=== PATIENT | female | born 1995 | race Caucasian/White ===

== ENCOUNTER 2023-08-21 17:33 | Outpatient (CLI) | payer BC, SELFPAY ==
--- OUTSIDE RECORDS SUMMARY | 2023-08-21 17:35 | XMS_ITS | Referral Summary ---
Author Organization [facility] Address [address] [place] [address] Care Team Providers Care Buffing Wheel Former Automatic Name Role Phone No Ref-Primary, Physician Primary Care Provider Allergies No known active allergies Medications Medication Sig Dispensed Refills Start Date End Date Status ORDER FOR DMEIndications:Pain in joint, ankle and foot, right,Right ankle sprain, initial encounter Equipment being ordered: ankle stirrup-universal 1 Device 0 02/04/2013 Active ORDER FOR DMEIndications:Spra in of ankle, right, subsequent encounter Equipment being ordered: standard ankle skin, large 1 Device 0 02/22/2013 Active oxyCODONE (ROXICODONE) 5 MG immediate release tabletIndications:F racture Take 1-2 tablets (5-10 mg) by mouth every 4 hours as needed for moderate to severe pain 24 tablet 0 10/26/2013 Active ibuprofen (ADVIL,MOTRIN) 400-800 mg tabletIndications:F racture Take 1 tablet (400 mg) by mouth every 6 hours as needed for moderate pain 24 tablet 0 10/26/2013 Active docusate sodium (COLACE) 50 MG capsuleIndications: No active medical problems Take 1 capsule (50 mg) by mouth 2 times daily 30 capsule 0 10/26/2013 Active Active Problems Problem Noted Date Diagnosed Date Fracture 10/25/2013 Right ankle sprain 02/04/2013 No active medical problems 05/06/2012 Resolved Problems Problem Noted Date Diagnosed Date Resolved Date Abnormal gait 11/10/2013 01/01/2014 Hip pain 10/31/2013 01/01/2014 Immunizations Name Administration Dates Next Due Rabies - IM Fibroblast Culture 09/29/2013 Rabies-Intradermal 09/24/2013,10/04/2012, 013,09/23/2012 TDAP (Adacel,Boostrix) 03/30/2021 Social History Tobacco Use Types Packs/Day Years Used Date Smoking Tobacco: Never Alcohol Use Standard Drinks/Week Comments No 0 (1 standard drink = 0.6 oz pur e alcohol) Adolescent Education Answer Date Record ed Getting School Help Needed Not on file 11/25 Sex and Gender Information Value Date Recorded Sex Assigned at Not on file Gender Identity Not on file Sexual Orientation Not on file Last Filed Vital Signs Vital Sign Reading Time Taken Comments Blood Pressure 104/71 03/30/2021 10:30 PM CONCRETE PIPE MAKER Pulse 78 03/30/2021 10:30 PM CONCRETE PIPE MAKER Temperature 36.6 ??C (97.8 ??F) 03/30/2021 10:[address] Respiratory Rate 16 03/30/2021 10:30 PM CONCRETE PIPE MAKER Oxygen Saturation 98% 03/30/2021 10:30 PM CONCRETE PIPE MAKER Inhaled Oxygen Concentration - - Weight 68 kg (150 lb) 10/25/2013 1:06 PM CDT Height 172.7 cm (5' 8) 10/25/2013 5:07 PM CDT Body Mass Index 22.81 10/25/2013 1:06 PM CDT Plan of Treatment Not on file Care Teams Buffing Wheel Former Automatic Relationship Specialty Start Date End Date No Ref-Primary, Physician PCP - General 03/30/21
--- OUTSIDE RECORDS SUMMARY | 2023-08-21 17:35 | XMS_ITS | Continuity of Care Document ---
Author Organization [facility] Address [address] [address] [place] [address] Phone Care Team Providers Care Jailkeeper Name Role Phone Rosa Isela Greco MD Unavailable Unavailable Allergies, Adverse Reactions, Alerts Substance Reaction Status Criticality No Known Allergies Active No Inform ation Medications Medication Instructions Dosage Effective Dates (start - stop) Status Comments Control Pill Oral - Ac tive Procedures Procedure Date Offic/outpt E&m [facility] Routine Serum Collection Gg; Iga, Igd, Igg, Igm, Ea General Health Panel C-reactive Prot Sed Rate, Erythrocyte; Auto Advance Directives Directive Yes / No Effective Date File Name No Information Encounters Encounter Description Practice Location Reason(s) For Visit Diagnoses Date Provider Providers Copied on Encounter [facility], [address] [address], [place], [place], [id number], tel:[phone] [facility] No Information 7 Angus Natarajan. [address] [facility], [place] [address], [place], [place], [id number] , [place]. tel:[phone] Zohra Cruz MD. tel:[phone] Offic/outpt E[facility], [address] [address], [place], [place], [id number], tel:[phone] [facility] GI Symptoms or Concerns (chief complaint) NauseaLower abdominal painDiarrhea, unspecified type 7 Angus Natarajan. [address] [place] [address], [facility], [place], [place], [id number] , . tel:[phone] Zohra Cruz MD. tel:[phone] erring Provider: Referral Self, USE FOR SELF REFERRALS. Family History Family Member Type Diagnosis Age At Onset Sister Problem (finding) IBS Payers Payer name Insurance type Covered constitution party ID Authoriza tion(s) No Information Social History Type Description Quantity Date Captured Comments Alcohol Use Details Unknown Caffeine Use Details Unknown Tobacco Use Status No Information Smoking Status No Information Sex Female Chief Complaint And Reason For Visit No Information Reason For Referral Reason For Referral No Information History Of Present Illness Encounter Date Complaint History Of Prese nt Illness GI Symptoms or Concerns This is an 20-year-old female with no significant past medical history who presents with her mother for further evaluation of nausea, lower abdominal pain, and diarrhea. She is currently a student at [employer] and living in the dorms. She reports that after traveling to [place] with her family and returning in February, she developed nausea and abdominal pain after eating and diarrhea. She describes lower abdominal sharp pains. She had a loose to watery stools and took Imodium, but subsequently became constipated. In that setting, she has some abdominal cramping, but otherwise does not have crampy abdominal pain. She lost 15 pounds due to poor p.o. intake which was due to a combination of anorexia, pain after eating, and nausea.There was one episode of some bright red blood on her stool when she was straining, but otherwise there has been no evidence of bleeding. She had influenza in May and was seen at Urgent Care at school and chest x-ray was done to evaluate for TB (due to her travel history). For her more chronic symptoms, she was given Zantac and a slurry that sounds like milk of magnesia, but she reports no significant improvement from that. After that, symptoms began to improve, she has been able to resume eating and feels that she has regained her weight back. Her mother believes she is still a little underweight compared to when she left for college a year ago, but agrees that symptoms have improved. She does continue to have some irregular BMs with one episode of diarrhea two days per week. Symptoms seem worse with caffeine and chocolate. She did try probiotics in May, but left them at school and has not been using them and has continued improvement.She reports that prior to starting college, she ate a lot of vegetables and fruits. She continues to enjoys yogurt, which seems to actually help her symptoms. At school, she ate a lot more carbohydrates and had limited options for quality fruit and vegetables. Functional Status Date Functional Assessmen t No Information Instructions Date Instruction Additional Infor brett Low FODMAPS diet Related to Diar bentley, unspecified type IBS Related to Diarr hea, unspecified type Assessments Type Assessment Date No Information Patient Care Teams Name Effective Dates (start - stop) Status Members No Information
--- OUTSIDE RECORDS SUMMARY | 2023-08-21 17:35 | XMS_ITS | Encounter Summary ---
Author Organization [facility] Address [address] [place] [address] Care Team Providers Care Supervisor Housecleaner Name Role Phone No Ref-Primary, Physician Primary Care Provider Encounter Details Date Type Department Care Team (Late st Contact Info) Description 03/31/2021 Documentation Only INTERFACED REPORT Unknown, Provider Social History Tobacco Use Types Packs/Day Years Used Date Smoking Tobacco: Never Alcohol Use Standard Drinks/Week Comments No 0 (1 standard drink = 0.6 oz pur e alcohol) Sex and Gender Information Value Date Recorded Sex Assigned at Not on file Gender Identity Not on file Sexual Orientation Not on file COVID-19 Exposure Response Date Recorded In the last month, have you been in contact with someone who was confirmed or suspected to have Coronavirus / COVID-19? No / Unsure 03/30/2021 10:28 PM PLANT PRODUCTION MANAGER documented as of this encounter Plan of Treatment Not on file documented as of this encounter Visit Diagnoses Not on filedocumented in this encounter Care Teams Supervisor Housecleaner Relationship Specialty Start Date End Date No Ref-Primary, Physician PCP - General 03/30/21 documented as of this encounter
--- OUTSIDE RECORDS SUMMARY | 2023-08-21 17:35 | XMS_ITS | Clinical Summary ---
Author Organization [facility] Address [place], [place] [address] Care Team Providers Care Cardiopulmonary Supervisor Name Role Phone Pcp, No Primary Care Provider Unavailabl e Allergies No known active allergies Medications Medication Sig Dispensed Refills Start Date End Date Status metoprolol succinate (TOPROL XL) 50 mg sustained-release tablet Take 50 mg by mouth every morning. Active fluconazole (DIFLUCAN) 100 mg tablet TAKE ONE TABLET BY MOUTH WEEKLY FOR SUPPRESSION Active Active Problems No known active problems Encounters Date Type Department Care Team Description 08/09/2023 Lab Requisition [facility] [phone] Aly, Paola Baca MD from Last 3 Months Immunizations Name Administration Dates Next Due Td (Age >=7 Years) 09/03/2008 Social History Tobacco Use Types Packs/Day Years Used Date Smoking Tobacco: Never Smokeless Tobacco: Never Sex and Gender Information Value Date Recorded Sex Assigned at Not on file Gender Identity Not on file Sexual Orientation Not on file Obstetrics History Last Filed Vital Signs Vital Sign Reading Time Taken Comments Blood Pressure 111/68 02/10/2023 4:33 PM DRUG AND ALCOHOL COUNSELOR Pulse 59 02/10/2023 4:33 PM DRUG AND ALCOHOL COUNSELOR Temperature 37.2 ??C (98.9 ??F) 02/10/2023 12:[address] Respiratory Rate 16 02/10/2023 4:33 PM DRUG AND ALCOHOL COUNSELOR Oxygen Saturation 100% 02/10/2023 4:33 PM DRUG AND ALCOHOL COUNSELOR Inhaled Oxygen Concentration - - Weight 49.9 kg (110 lb) 02/10/2023 12:04 PM DRUG AND ALCOHOL COUNSELOR Height 172.7 cm (5' 8) 02/10/2023 12:04 PM DRUG AND ALCOHOL COUNSELOR Body Mass Index 16.73 02/10/2023 12:04 PM DRUG AND ALCOHOL COUNSELOR Plan of Treatment Health Maintenance Due Date Last Done Comments Tdap 2008 Depression screening for age 12+ 2009 HIV for age 15-65 2012 HPV series for age 9-26 (1 - 3-dose series) 2012 BMI (ht and wt on same day) for age 18+ 09/12/2015 Hepatitis C screening for ag e 18-79 09/12/2015 Tetanus booster 09/03/2018 09/03/2008 COVID-19 vaccine series ( season) 2023 12/08/2022, 01/29/2021 Influenza for age 9-49 10/21/2023 Pap test for age 21-65 12/29/2023 , 12/28/2020 Pneumococcal series for age 6-64 Aged Out No longer eligible b ased on patient's age to complete this topic Procedures Procedure Name Priority Date/Time Associated Diagnosis Comments LAB TRACKING EVENT Routine 08/08/2023 9: 55 AM CDT PATH TISSUE EXAM Routine 08/08/2023 9:55 AM CDT MIXER WHIPPED TOPPING THIN PREP PAP SCREEN IMAGED Routine 12/28/2020 5:15 PM DRUG AND ALCOHOL COUNSELOR from Last 3 Months or Most Recently Relevant to Health Maintenance Results * LAB TRACKING EVENT (08/08/2023 9:55 AM CDT) Other (Other) Client Collect / Unknown 08/08/2023 9:55 AM CDT 08/09/2023 2:51 PM CDT Paola Phuong Lu MD [facility] [address] [place] [address], * PATH TISSUE EXAM (08/08/2023 9:55 AM CDT) Case Report Pathology Report ?Case: [id number] ? Authorizing Provider: ??Paola Lu MD ?Collected: ? 08/08/2023 0955 ? Ordering Location: ? [facility] ?Received: ?08/09/2023 1714 ? Pathologist: ? Jonathan William MD ? Specimens: ?? A) - Cervical Biopsy, 11 o'clock ? B) - Cervical Biopsy, 5 o'clock ? C) - Cervical Biopsy, 9 o'clock ? D) - Endocervical Curettings, ECC ? 08/14/2023 9:19 AM CDT [facility]AL LABORATORY Final Diagnosis A) CERVIX, 11:00, BIOPSY: 1. Low grade squamous intraepithelial lesion (LIBBY 1) ?? a. Sampling: Ectocervix and endocervix ?? b. Transformation zone: Present 2. Negative for high grade LIBBY and invasive carcinoma B) CERVIX, 5:00, BIOPSY: 1. Low grade squamous intraepithelial lesion (LIBBY 1) ?? a. Sampling: Ectocervix and endocervix ?? b. Transformation zone: Present 2. Negative for high grade LIBBY and invasive carcinoma C) CERVIX, 9:00, BIOPSY: 1. Low grade squamous intraepithelial lesion (LIBBY 1) ?? a. Sampling: Ectocervix and endocervix ?? b. Transformation zone: Present 2. Negative for high grade LIBBY and invasive carcinoma D) ENDOCERVIX, CURETTAGE: 1. Fragments of benign endocervical tissue 2. Negative for glandular neoplasia, squamous intraepithelial lesion, and malignancy 08/14/2023 9:19 AM T [facility] LAB[facility] Clinical Information Last Pap 06/22/2023 - LSIL/HPV+ (other non-16/18 type) Colposcopy 07/14/2022 - LIBBY 1 08/14/2023 9:19 AM T [facility] Gross Description A) Received in formalin, labeled with the patient's name and A, is a single cueva mucosal fragment measuring 0.4 cm. The specimen is submitted in toto in one cassette. B) Received in formalin, labeled with the patient's name and B, is a single cueva mucosal fragment measuring 0.5 cm. The specimen is submitted in toto in one cassette. C) Received in formalin, labeled with the patient's name and C, is a single cueva mucosal fragment measuring 0.5 cm. The specimen is submitted in toto in one cassette. D) Received in formalin, labeled with the patient's name and D, is a 1.6 x 1.0 x 0.1 cm aggregate of blood tinged mucous. The specimen is entirely submitted in 1 cassette. [facility] 08/09/2023 08/14/2023 9:19 AM CDT [facility] Microscopic Description The final diagnosis is based on microscopic examination of appropriate sections of all specimens. Immunohistochemica l staining was performed, the results of which are as follows: - p16 (Part A): Non-aberrant (patchy positive) - p16 (Part B): Non-aberrant (patchy positive) - p16 (Part C): Non-aberrant (patchy positive) 08/14/2023 9:19 AM CDT [facility] Additional Information Interpreted at [facility] - [address] [facility] [address], [place] [address] Immunohistochemist ry controls were reviewed and approved by the pathologist during this examination. 08/14/2023 9:19 AM CDT [facility] Other (Cervical Biopsy) 08/08/2023 9:55 AM CDT 08/09/2023 5:14 PM CDT Specimen (specimen) (Cervical Biopsy) 08/08/2023 9:55 AM CDT 08/09/2023 5:14 PM CDT Specimen (specimen) (Cervical Biopsy) 08/08/2023 9:55 AM CDT 08/09/2023 5:14 PM CDT Specimen (specimen) (Endocervical Curettings) 08/08/2023 9:55 AM CDT 08/09/2023 5:14 PM CDT Paola Phuong Lu MD [facility] [address] [place] [address], * (ABNORMAL) MIXER WHIPPED TOPPING THIN PREP PAP SCREEN IMAGED (12/28/2020 5:15 PM DRUG AND ALCOHOL COUNSELOR) Case Report Gynecologic Cytology Report ? Case: [id number] ? Authorizing Provider: ??Fitzloff, Marisol L, PA-C ?Collected: ? 12/28/2020 1715 ? Ordering Location: ? [facility] ?Received: ?12/30/2020 0818 ? First Screen: ?Wes, Xon Shahab ? Pathologist: ? Scotty Mejia Jr., ? MD ? Specimen: ?MIXER WHIPPED TOPPING ThinPrep Vial Screening, Cervical/Vaginal ? 01/14/2021 11:19 AM DRUG AND ALCOHOL COUNSELOR [facility]AL LABORATORY INTERPRETATION/ RESULT ATYPICAL SQUAMOUS CELLS OF UNDETERMINED SIGNIFICANCE (ASCUS)(A) (none) 01/14/2021 11:19 AM [facility] ENTRAL LABORATORY R NON-NEOPLASTIC FINDING(S) Reactive cellular changes associated with inflammation/repa ir 01/14/2021 11:19 AM DRUG AND ALCOHOL COUNSELOR [facility] ORGANISM(S) Bacteria morphologically consistent with Actinomyces species 01/14/2021 11:19 AM DRUG AND ALCOHOL COUNSELOR [facility] SPECIMEN ADEQUACY Satisfactory for evaluation Endocervical component present 01/14/2021 11:19 AM DRUG AND ALCOHOL COUNSELOR [facility] HPV REQUEST HPV if ASCUS 01/14/2021 11:19 AM DRUG AND ALCOHOL COUNSELOR [facility] Additional Information 01/14/2021 11:19 AM DRUG AND ALCOHOL COUNSELOR [facility] Comment: Interpreted at [facility] - [address], [place] [address] Automated Review Successful 01/14/2021 11:[address] [facility] Comment:Specimen processed s uccessfully by automated parts counter representative device, SpectraRepPrep Imaging System, [employer] ANCILLARY TESTING MIXER WHIPPED TOPPING HPV Ordered, Please see separate report 01/14/2021 11:[address] [facility] Note The pap test is a screening technique, not a diagnostic procedure. It is used primarily to screen for squamous cancers and precursor lesions. Published studies have shown that it is subject to both false negative and false positive results. The pap test should not be used as the sole means to diagnose or exclude pre-malignant and malignant lesions. 01/14/2021 11:[address] [facility] Other (Cervical/Vagina l) 12/28/2020 5:15 PM DRUG AND ALCOHOL COUNSELOR 12/30/2020 8:18 AM DRUG AND ALCOHOL COUNSELOR May Jean-Pierre NELSON PATHOLOGY/CYTOLOGY [facility] [address] [place] [address], [place] from Last 3 Months or Most Recently Relevant to Health Maintenance Care Teams Cardiopulmonary Supervisor Relationship Specialty Start Date End Date Pcp, No . PCP - General 02/14/23
--- OUTSIDE RECORDS SUMMARY | 2023-08-21 17:35 | XMS_ITS | Clinical Summary ---
Author Organization [facility] Address [address] [place] [address] Care Team Providers Care Perlite Grinder Name Role Phone No Ref-Primary, Physician Primary [...] 09/29/2013 Rabies-Intradermal 09/24/2013,10/04/2012, 013,09/23/2012 TDAP (Adacel,Boostrix) 03/30/2021 Family History Medical History Relation Comments Allergies Maternal Grandmother dogs Neurologic Disorder Mother and Maternal Grandmother, migranes Eye Disorder Sister self- contacts Musculoskeletal Disorder Sister pars fr acture, L5 Respiratory Sister vocal cord dysfu ntion Relation Status Comments Maternal Grandmother Mother Sister Social History Tobacco Use Types Packs/Day Years [...] Comments Blood Pressure 104/71 03/30/2021 10:30 PM ABRASIVE WORKER Pulse 78 03/30/2021 10:30 PM ABRASIVE WORKER Temperature 36.6 ??C (97.8 ??F) 03/30/2021 10:[address] Respiratory Rate 16 03/30/2021 10:30 PM ABRASIVE WORKER Oxygen Saturation 98% 03/30/2021 10:30 PM ABRASIVE WORKER Inhaled Oxygen Concentration - - Weight 68 kg (150 lb) 10/25/2013 1:06 PM CDT Height 172.7 cm (5' 8) 10/25/2013 5:07 PM CDT Body Mass Index 22.81 10/25/2013 1:06 PM CDT Plan of Treatment Health Maintenance Due Date Last Done Comments ADVANCE CARE PLANNING 1997 ANNUAL REVIEW OF HM ORDERS 1997 YEARLY PREVENTIVE VISIT 1997 HIV SCREENING 2012 HPV IMMUNIZATION (1 - 3-dose series) 2012 HEPATITIS C SCREENING 09/12/2015 HEPATITIS B IMMUNIZATION (1 of 3 - 19+ 3-dose series) 2016 COVID-19 Vaccine ( - 2022-2 4 season) 2022 PHQ-2 (once per calendar year) 2023 INFLUENZA VACCINE (#1) 2023 03/10/2013 PAP 12/29/2023 12/28/2020, 12/28/2020 DTAP/TDAP/TD IMMUNIZATION (3 - Td or Tdap) 03/30/2031 03/30/2021, 09/03/2008 IPV IMMUNIZATION Aged Out No longer e ligible based on patient's age to complete this topic MENINGITIS IMMUNIZATION Aged Out No l onger eligible based on patient's age to complete this topic Pneumococcal Vaccine: Pediatrics (0 to 5 Years) and At-Risk Patients (6 to 64 Years) Aged Out No longer eligible b ased on patient's age to complete this topic RSV MONOCLONAL ANTIBODY Aged Out No l onger eligible based on patient's age to complete this topic Care Teams Perlite Grinder Relationship Specialty Start Date End Date No Ref-Primary, Physician PCP - General 03/30/21
[2023-08-21 20:51] LABS: Bacterial Vaginosis* Negative (Negative); Candida glab/krus NOT DETECTED (No Detected); Candida species NOT DETECTED (No Detected); Trichomonas vaginalis NOT DETECTED (No Detected)
== END 2023-08-21 17:34 | disposition home or self-care (01) ==
LOC: NFLDREF 17:34
PROVIDERS: Visit Provider Physician Assistant
DX: N89.8 Other specified noninflammatory disorders of vagina (principal)
CPT/HCPCS: 81513; 87481; 87661